=== PATIENT | male | born 1980 | race Caucasian/White ===

== ENCOUNTER 2022-04-02 16:00 | Emergency (ER) | payer OTHER ==
[~2022-04-02] VITALS: Ht 180.3 cm; Wt 29.5 kg
--- NOTE | 2022-04-02 16:01 | NUR ---
CALLI ALS TO ER BED 8
[2022-04-02 16:04] VITALS: BP 104/66
--- NOTE | 2022-04-02 17:50 | NUR ---
PT REQUESTING MED TO HELP HIM SLEEP, DENIES ANY PAIN, O2 SAT 99?% RA, SR UP TIMES 2 NO DISTRESS NOTED
--- NOTE | 2022-04-02 19:13 | NUR ---
PT SLEEPING, NO AC DISTRESS, O2 SAT 97% RA, REPORT TO [facility] ABDULLAHI
[2022-04-02 21:50] VITALS: BP 104/66
--- NOTE | 2022-04-02 21:50 | NUR ---
Patient discharged with v/s stable. Written and verbal after care instructions given and explained. Patient verbalized understanding. Ambulatory with steady gait. All questions addressed prior to discharge. Advised to follow up with PMD.
== END 2022-04-02 21:50 | disposition home or self-care (01) ==
LOC: MED 16:00
DX: F15.129 Other stimulant abuse with intoxication, unspecified (principal)
CPT/HCPCS: 99283